=== PATIENT | male | born 1980 | race Caucasian/White ===

== ENCOUNTER 2017-01-24 22:54 | Emergency (ER) | payer MEDICAID ==
[2017-01-25 00:36] LABS: APPEARANCE CLOUDY (CLEAR); BILIRUBIN NEGATIVE (NEGATIVE); COLOR YELLOW (YELLOW); GLUCOSE NEGATIVE (NEGATIVE); KETONE NEGATIVE (NEGATIVE); NITRITE NEGATIVE (NEGATIVE); PROTEIN TRACE mg/dL (NEGATIVE); SPECIFIC GRAVITY 1.025 (1.005-1.020); UROBILINOGEN NORMAL (NORMAL)
[2017-01-25 00:38] LABS: BACTERIA FEW /hpf (NONE SEEN); EPITHELIAL CELLS 0-5 /hpf (0-5); MUCUS <1+ /lpf (NONE SEEN); RED CELLS - URINE 0-5 /hpf (0-5)
== END 2017-01-25 01:24 | disposition home or self-care (01) ==
LOC: D.ER 22:54
PROVIDERS: Nurse Practitioner Family
DX: Z20.2 Contact with and (suspected) exposure to infections with a predominantly sexual mode of transmission (principal); N39.0 Urinary tract infection, site not specified

== ENCOUNTER 2017-10-04 00:48 | Emergency (ER) | payer SELFPAY ==
[~2017-10-04] VITALS: Ht 190.5 cm; Wt 102.1 kg
[2017-10-04 00:52] VITALS: Ht 190.5 cm; Wt 102.1 kg
[2017-10-04] MEDS ORDERED: FLAGYL500 MG PO (01:07)
[2017-10-04 01:44] LABS: APPEARANCE CLOUDY (CLEAR); BILIRUBIN NEGATIVE (NEGATIVE); COLOR YELLOW (YELLOW); GLUCOSE NEGATIVE (NEGATIVE); KETONE NEGATIVE (NEGATIVE); NITRITE NEGATIVE (NEGATIVE); PROTEIN TRACE mg/dL (NEGATIVE); UROBILINOGEN NORMAL (NORMAL)
[2017-10-04 01:46] LABS: BACTERIA MODERATE /hpf (NONE SEEN); CALCIUM OXALATE CRYSTALS 0-5 /hpf (NONE SEEN); EPITHELIAL CELLS 0-5 /hpf (0-5); MUCUS <1+ /lpf (NONE SEEN); RED CELLS - URINE 0-5 /hpf (0-5); SPERMATOZOA PRESENT /hpf (NONE SEEN)
[2017-10-04 02:02] VITALS: BP 135/79
== END 2017-10-04 02:02 | disposition home or self-care (01) ==
LOC: D.ER 00:48
PROVIDERS: Family Medicine
DX: R36.9 Urethral discharge, unspecified (principal); Z20.2 Contact with and (suspected) exposure to infections with a predominantly sexual mode of transmission; R30.0 Dysuria

== ENCOUNTER 2018-04-08 21:34 | Emergency (ER) | payer MEDICAID ==
[~2018-04-08] VITALS: Ht 190.5 cm; Wt 102.3 kg
[~2018-04-08 21:34] MED LIST: FLAGYL500 MG PO
[2018-04-08 21:47] VITALS: Ht 190.5 cm; Wt 102.3 kg
[2018-04-08 22:07] LABS: BASOPHILS 0.9 % (0-2); EOSINOPHILS 4.4 % (0-7); HEMATOCRIT 38.6 % (42.0-54.0); HEMOGLOBIN 13.3 g/dL (13.5-17.5); IMMATURE GRANULOCYTES 0.2 % (0-5); LYMPHOCYTES 32.7 % (15-50); MCH 29.5 pg (26.0-34.0); MCHC 34.5 g/dL (31.0-37.0); MCV 85.6 fL (80.0-100.0); MONOCYTES 4.7 % (2-11); NEUTROPHILS 57.1 % (40-80); PLATELET COUNT 338 10x3/uL (130-400); RBC 4.51 10x6/uL (4.20-6.10); RDW 12.7 % (11.5-14.5); WBC 9.2 10x3/uL (4.8-10.8)
[2018-04-08 22:24] LABS: ALBUMIN 3.4 g/dL (3.4-5.0); ALKALINE PHOSPHATASE 64 U/L (46-116); ALT (SGPT) 34 U/L (10-68); BILIRUBIN - TOTAL 0.25 mg/dL (0.2-1.3); CALC OSMOLALITY 282 mosm/kg (275-300); CALCIUM 8.8 mg/dL (8.5-10.1); CARBON DIOXIDE 26.1 mmol/L (21.0-32.0); CHLORIDE - SERUM 104 mmol/L (98-107); CREATININE - SERUM 1.1 mg/dL (0.6-1.3); GLUCOSE 103 mg/dL (74-106); POTASSIUM - SERUM 3.8 mmol/L (3.5-5.1); SODIUM 141 mmol/L (136-145); UREA NITROGEN 17 mg/dL (7-18); eGFR NON AFRICAN AMERICAN 81 mL/min (90-120)
[2018-04-08] MEDS ORDERED: ULTRAM50 MG PO (22:57)
[2018-04-08] MEDS ORDERED: SULFAMETHOXAZOL1 TA3 PO (22:58)
[2018-04-08 23:55] VITALS: BP 141/89
== END 2018-04-08 23:55 | disposition home or self-care (01) ==
LOC: D.ER 21:34
PROVIDERS: Emergency Medicine
DX: N45.1 Epididymitis (principal); R10.9 Unspecified abdominal pain